=== PATIENT | female | born 1955 | race Caucasian/White ===

== ENCOUNTER 2021-04-05 11:16 | Emergency (ER) | payer MEDICARE ==
[~2021-04-05] VITALS: Ht 160 cm; Wt 63.5 kg
[2021-04-05] MEDS ORDERED: FAMOTIDINE/PF INJ 20 MG/2 ML VIAL IV ONE ×2 (13:00)
[2021-04-05] MEDS ORDERED: IV NS 0.9% 1,000 ML BAG IV ONE (13:00)
--- NOTE | 2021-04-05 13:04 | NUR ---
MEDICATED PER [facility] ORDER, PT OLIVIER WELL. WILL CONT TO MONITOR.
[2021-04-05] MEDS ORDERED: predniSONE 20 MG TABLET PO ONE (13:30)
[2021-04-05] MEDS ORDERED: predniSONE 20 MG TABLET ONE (13:34)
[2021-04-05] MEDS ORDERED: PRED20TA PO (13:55)
[2021-04-05] MEDS ORDERED: EPIN0.3P3 IJ (13:55)
[2021-04-05] MEDS ORDERED: DIPH25CA83 PO (13:55)
[2021-04-05] MEDS ORDERED: FAMO-131 PO (13:55)
--- NOTE | 2021-04-05 14:25 | NUR ---
IV removed. Catheter intact and site benign. Pressure and 4x4 applied to site. No bleeding noted.Patient discharged to home in stable condition. Written and verbal after care instructions given. Patient verbalizes understanding of instruction.
[2021-04-05 14:27] VITALS: BP 121/80
== END 2021-04-05 14:27 | disposition home or self-care (01) ==
LOC: ER 11:25
DX: L50.9 Urticaria, unspecified (principal); T46.7X5A Adverse effect of peripheral vasodilators, initial encounter; Z79.899 Other long term (current) drug therapy; Z88.8 Allergy status to other drugs, medicaments and biological substances; Y92.89 Other specified places as the place of occurrence of the external cause
CPT/HCPCS: 96361; 96374; 99285; J3490; J7030; J7512